=== PATIENT | male | born 1970 | race Caucasian/White ===

== ENCOUNTER 2023-08-23 21:02 | Observation (INO) | payer MEDICARE, SELFPAY ==
[2023-08-23] VITALS (9 sets, daily range): BP systolic 155–176; BP diastolic 88–114; PULSE 98–108; RESP 12–39; TEMP 36.5; O2SAT 93–98; BMI 39.5
--- NOTE | 2023-08-23 21:20 | DI.CT.S_ITS ---
PROCEDURE: CT CHEST ABD PEL W CON INDICATIONS: severe ab pain, distention TECHNIQUE: After the administration of intravenous contrast, 5 mm thick sections acquired from the lung apices to the symphysis. 5 mm coronal and sagittal reformats were performed, with additional 7 mm MIP reformats through the lungs. For radiation dose reduction, the following was used: automated exposure control, adjustment of mA and/or kV according to patient size. COMPARISON: None. FINDINGS: Image quality: Excellent. CHEST: Lungs and pleura: No acute airspace opacities. No pleural effusions or pneumothorax. Central and peripheral airways appear patent and normal in caliber. Mediastinum: Heart size is normal. No pericardial effusion. And inferior right hilar lymph node measures 1 point 5 cm in short axis diameter (146/5). Subcarinal lymph node measures up to 1.2 cm in short axis (132/5). Increased number of normal-sized mediastinal lymph nodes are also noted. Thoracic aorta and central pulmonary arteries are normal in size. Esophagus is normal in caliber. No hiatal hernia. Chest wall: No axillary or supraclavicular adenopathy by size criteria. Thyroid is unremarkable. ABDOMEN: Solid organs: Liver is enlarged and diffusely hypoattenuating, consistent with fatty infiltration. Liver measures 22.7 cm in craniocaudal dimension. There is questionable subtle nodularity of the liver surface, best seen adjacent to the falciform ligament. Gallbladder is normal in appearance without calcified gallstones. Biliary system is non dilated. Pancreas enhances normally. Spleen is normal in size and enhancement. No adrenal nodules. Kidneys demonstrate normal size and enhancement, without hydronephrosis. Peritoneum and bowel: Bowel loops demonstrate normal wall thickness and caliber. Moderate volume of ascites throughout the abdomen and pelvis. No pneumoperitoneum. Nodes and vessels: A 1.2 cm short axis lymph node is seen anterior to the superior vena cava (65/2). There is a 1.3 cm gastric patent ligament left node (60/2). Aorta and inferior vena cava are normal in size. Miscellaneous: No ventral hernias. Mild soft tissue anasarca. PELVIS: Genitourinary: Bladder wall thickness is normal. Miscellaneous: Moderate left and small right fat containing inguinal hernias. Bones: No suspicious bony lesions. No vertebral body compression fractures. IMPRESSION: 1. Moderate volume of ascites throughout the abdomen and pelvis. 2. Hepatomegaly and diffuse hepatic steatosis. Questionable subtle nodularity of the liver surface could indicate mild or developing cirrhosis. 3. Mild soft tissue anasarca. 4. Mildly enlarged upper abdominal, mediastinal, and right hilar lymph nodes are nonspecific, but may be reactive. 5. Bilateral fat containing inguinal hernias. Approved by: Martín Brown M.D. on 08/23/2023 at 21:56
[2023-08-23] MEDS: SODIUM CHLORIDE 0.9% 1,000 ML 1000 ML IV (21:37)
[2023-08-23] MEDS: ONDANSETRON 4 MG/2 ML INJ IV (21:38)
[2023-08-23] MEDS: MORPHINE 2 MG/ML INJ IV (21:38)
[2023-08-23 21:40] LABS: Add Manual Diff / Slide Review NO; Basophils Absolute Auto 100 /uL (0-100); Basophils Percent Auto 1.2 % (0-2); Eosinophils Absolute Auto 100 /uL (0-450); Hematocrit 42.2 % (41-53); Lymphocytes Absolute Auto 1800 /uL (1100-4500); Lymphocytes Percent Auto 18.8 % (25-40); Mean Corpuscular HGB Conc 35.6 % (30-36); Mean Corpuscular Hemoglobin 34.7 PG (26-34); Mean Corpuscular Volume 97.4 fL (80-100); Monocytes Absolute Auto 800 /uL (0-900); Neutrophils Absolute Auto 6800 /uL (1500-7000); Platelet Count 161 X10^3/uL (150-400); Red Blood Cell Count 4.33 X10^6/uL (4.5-5.9); Red Cell Distribution Width 15.7 % (11.6-14.8); White Blood Cell Count 9.6 X10^3/uL (4.5-11.0)
[2023-08-23 21:43] LABS: INR 1.3 (0.9-1.3); Prothrombin Time 15.3 SECONDS (9.4-12.5)
[2023-08-23 21:46] LABS: PTT Partial Thromboplastin Tim 30 SECONDS (25.1-36.5)
[2023-08-23 21:48] LABS: Alanine Aminotransferase 90 IU/L (<50); Albumin 3.1 g/dL (3.5-5.0); Albumin Globulin Ratio 0.8 (1.0-2.8); Alkaline Phosphatase 190 U/L (38-126); Aspartate Aminotransferase 208 IU/L (17-59); BUN Creatinine Ratio 15.6 (6-22); Bilirubin Total 2.3 mg/dL (0.2-1.3); Blood Urea Nitrogen 10 mg/dL (9-20); Calcium 7.9 mg/dL (8.4-10.2); Carbon Dioxide 23 mmol/L (22-32); Chloride 101 mmol/L (98-107); Estimated Glomerular Filt Rate > 60 mL/min (>60); Globulin 4.1 g/dL (1.7-4.1); Glucose 138 mg/dL (70-100); HEMOLYSIS 50 (0-50); Lipase 435 U/L (23-300); Potassium 3.8 mmol/L (3.4-5.1); Sodium 133 mmol/L (137-145); Total Protein 7.2 g/dL (6.3-8.2)
[2023-08-23 21:49] LABS: Lactate (Lactic Acid) 1.7 mmol/L (0.7-2.1)
[2023-08-23 22:05] LABS: Procalcitonin 1.14 ng/mL (<0.5)
[2023-08-23] MEDS: LORazepam 2 MG/ML INJ 1 MG IV (22:09)
[2023-08-23 22:14] LABS: Ethanol (ETOH) 34 mg/dL
--- NOTE | 2023-08-23 22:38 | DI.US.S_ITS ---
PROCEDURE: US ABDOMEN LIMITED INDICATIONS: moses for ascites TECHNIQUE: Real-time focused scanning was performed of the abdomen, with image documentation. COMPARISON: None. FINDINGS: Moderate abdominal ascites is seen with the largest fluid pocket in the right lower quadrant. The skin was marked by the warehouseman for paracentesis. 7 cm seen from the skin surface to the center of the pocket. IMPRESSION: Abdominal ascites. Largest pocket in the right lower quadrant and a site was marked by the warehouseman for paracentesis. Approved by: Martín Brown M.D. on 08/23/2023 at 23:32
--- NOTE | 2023-08-23 23:00 | ED.ABDPAIN ---
HPI - Abdominal Pain General Chief Complaint: Abdominal Pain Stated Complaint: swelling upper abd T-4/ Time Seen by Provider: 08/23/23 21:20 Source: patient Mode of arrival: Ambulatory History of Present Illness HPI narrative: Patient 53-year-old male history of alcohol use presents today with worsening abdominal pain bloating and difficulty breathing. He states that over the last 4 days it is gotten significantly worse. He actually has tried decreasing his alcohol intake because he feels so swollen. He reports that he drinks at least 8 a day but the number has changed with every person he speaks with. He denies fever although on initial presentation he is diaphoretic and appears unwell. He has no nausea or vomiting. He feels a little shortness of breath but thinks that is due to his abdomen no chest pain. He does not really have abdominal pain he just feels really swollen. He reports that he previously was sober for a number of years but started drinking again. Related Data Home Medications Medication Instructions Recorded Confirmed hydroxyzine pamoate 25 mg capsule 25 mg PO BID PRN ##0 05/20/11 (Vistaril) Allergies Allergy/AdvReac Type Severity Reaction Status Date / Time No Known Drug Allergies Allergy Verified 08/23/23 21:06 Patient History Social History Smoking Status: Never smoker Smoking Status: Never smoker alcohol intake frequency: 3 or more drinks per day Alcohol type: beer Substance Use Type: does not use Exam Initial Vital Signs Initial Vital Signs: Vital Signs Temperature 97.7 F 08/23/23 21:06 Pulse Rate 107 H 08/23/23 21:06 Respiratory Rate 26 H 08/23/23 21:06 Blood Pressure 169/101 H 08/23/23 21:06 Pulse Oximetry 95 08/23/23 21:06 Oxygen Delivery Method Room Air 08/23/23 21:06 GENERAL: Alert 53-year-old male appears diaphoretic unwell appears to have [id number] dyspnea. HEENT: Head atraumatic,EOMI, pupils reactive, face symmetric, [moist] mucous membranes CARDIOVASCULAR: Tachycardic but regular RESPIRATORY: Slight tachypnea clear bilaterally no wheezes rales or rhonchi ABDOMEN: Distended hard focally tender decreased bowel sounds EXTREMITIES: Normal range of motion, no clubbing or edema. Neurovascularly intact NEUROLOGICAL: Alert and oriented x4.Normal gait and speech. No cranial nerve deficits SKIN: Warm, dry, no laceration, no petechiae, no rashes or lesions. Procedures Paracentesis Indication: Ascites and possible spontaneous bacterial peritonitis Procedure: therapeutic paracentesis and diagnostic paracentesis Location: RLQ Local Anesthetic: lidocaine 1% Amount of anesthesia used (mL): 3 Bedside Ultrasound Used: yes, Ascites confirmed and location marked Preparation: sterile prep and drape and Blade used to make brendan in skin Amount of fluid obtained (mL): 4,000 Fluid: cloudy and sent to lab for analysis Post Procedure Exam: awake, alert, normal BP, normal HR and normal SpO2 Patient Tolerated Procedure: No complications Complications: none Course Orders Ordered: ED Orders 08/23/23 21:18 XR chest 1V Stat EKG-12 Lead Stat RT Consult Eval and Treat NOW 08/23/23 21:20 CT chest abd pel w con Stat 08/23/23 21:25 Complete Blood Count AUTO DIFF Stat Comprehensive Metabolic Panel Stat Lactate (Lactic Acid) Stat Lipase Stat PTT Partial Thromboplastin Richard Stat Procalcitonin Stat Prothrombin Time INR Stat 08/23/23 21:34 Blood Culture Stat 08/23/23 21:47 Ethanol (ETOH) Stat 08/23/23 22:38 US abdomen limited Stat 08/24/23 00:45 Body Fluid Culture Stat Cell Count w Diff Body Fluid Stat 08/24/23 01:15 LDH [Lactate Dehydrogenase] Stat 08/24/23 02:18 Education, smoking cessation ONGOING 08/24/23 02:30 Complete Blood Count AUTO DIFF DAILY Comprehensive Metabolic Panel DAILY Calcium Carbonate (Calcium Carbonate 500 Mg Tab) 1,000 mg PO Q4HR PRN PRN Reason: Dyspepsia Heparin Sodium (Porcine) (Heparin 5,000 Unit/Ml Vial) 5,000 unit SUBCUT BID REPLACED BY [facility] Ceftriaxone Sodium 2,000 mg/ (Sodium Chloride) 100 mls @ 200 mls/hr IV Q24H REPLACED BY [facility] Ibuprofen (Ibuprofen 400 Mg Tablet) 400 mg PO Q4H [facility] Morphine Sulfate (Morphine 4 Mg/Ml Inj) 3 mg IV Q2HR [facility] Naloxone HCl (Naloxone 0.4 Mg/Ml Vial) 0.2 mg IV Q2MIN PRN PRN Reason: Opiate Reversal Ondansetron HCl (Ondansetron 4 Mg/2 Ml Inj) 4 mg IV NOW PRN PRN Reason: Nausea And Vomiting Ondansetron HCl (Ondansetron 4 Mg Odt) 4 mg SL NOW PRN PRN Reason: Nausea And Vomiting Ondansetron HCl (Ondansetron 4 Mg/2 Ml Inj) 4 mg IV Q8HR PRN PRN Reason: Nausea And Vomiting Oxycodone HCl (Oxycodone Ir 10 Mg Tablet) 5 mg PO Q3H PRN PRN Reason: Pain, Severe (7-10) Pantoprazole Sodium (Pantoprazole Dr 20 Mg Tablet) 20 mg PO 0600 GREGORY Discontinued Medications Sodium Chloride (Normal Saline 0.9%) 1,000 mls @ 1,000 mls/hr IV BOLUS ONE Stop: 08/23/23 22:17 Last Infusion: 08/23/23 22:37 Dose: Infused Documented By: Admin: 08/23/23 21:37 Dose: 1,000 mls/hr Documented By: MIKE Ceftriaxone Sodium 2,000 mg/ (Sodium Chloride) 100 mls @ 200 mls/hr IV NOW ONE Stop: 08/24/23 00:31 Last Infusion: 08/24/23 01:31 Dose: Infused Documented By: Admin: 08/24/23 01:01 Dose: 200 mls/hr Documented By: ASHWIN Lorazepam (Lorazepam 2 Mg/Ml Inj) 1 mg IV NOW ONE Stop: 08/23/23 21:52 Last Admin: 08/23/23 22:09 Dose: 1 mg Documented By: MIKE Morphine Sulfate (Morphine 2 Mg/Ml Inj) 2 mg IV NOW ONE Stop: 08/23/23 21:22 Last Admin: 08/23/23 21:38 Dose: 2 mg Documented By: MIKE Ondansetron HCl (Ondansetron 4 Mg/2 Ml Inj) 4 mg IV NOW ONE Stop: 08/23/23 21:22 Last Admin: 08/23/23 21:38 Dose: 4 mg Documented By: MIKE Vital Signs Vital signs: Vital Signs - 8 hr 08/23/23 21:06 08/23/23 21:18 08/23/23 21:26 Temperature 97.7 F Pulse Rate 107 H 104 H 100 H Respiratory Rate 26 H 28 H 26 H Blood Pressure 169/101 H Pulse Oximetry 95 95 Oxygen Delivery Method Room Air 08/23/23 21:26 08/23/23 21:40 08/23/23 21:41 Temperature Pulse Rate 108 H 103 H Respiratory Rate 13 12 Blood Pressure 166/103 H Pulse Oximetry 98 97 Oxygen Delivery Method 08/23/23 21:41 08/23/23 22:00 08/23/23 22:00 Temperature Pulse Rate 98 H Respiratory Rate 24 Blood Pressure 169/94 H 176/103 H Pulse Oximetry 94 Oxygen Delivery Method 08/23/23 22:30 08/23/23 22:30 08/23/23 23:00 Temperature Pulse Rate 98 H 99 H Respiratory Rate 20 26 H Blood Pressure 155/88 H Pulse Oximetry 93 93 Oxygen Delivery Method 08/23/23 23:00 08/23/23 23:30 08/23/23 23:30 Temperature Pulse Rate 102 H Respiratory Rate 39 H Blood Pressure 159/92 H 159/114 H Pulse Oximetry 96 Oxygen Delivery Method 08/24/23 00:00 08/24/23 00:00 08/24/23 00:30 Temperature Pulse Rate 96 H 99 H Respiratory Rate 21 36 H Blood Pressure 178/104 H Pulse Oximetry 93 95 Oxygen Delivery Method 08/24/23 00:30 08/24/23 01:00 08/24/23 01:00 Temperature 98.8 F Pulse Rate 99 H Respiratory Rate 36 H Blood Pressure 196/97 H 198/100 H Pulse Oximetry 96 Oxygen Delivery Method 08/24/23 01:30 08/24/23 01:30 Temperature Pulse Rate 99 H Respiratory Rate 36 H Blood Pressure 190/93 H Pulse Oximetry 96 Oxygen Delivery Method MDM - Abdominal Pain Lab Data 08/23/23 21:25 08/23/23 21:25 Labs: Lab Results 08/23/23 08/23/23 08/24/23 Range/Units 21:25 21:47 00:45 WBC 9.6 (4.5-11.0) X10^3/uL RBC 4.33 L (4.5-5.9) X10^6/uL Hgb 15.0 (13.5-17.5) g/dL Hct 42.2 (41-53) % MCV 97.4 (80-100) fL MCH 34.7 H (26-34) PG MCHC 35.6 (30-36) % RDW 15.7 H (11.6-14.8) % Plt Count 161 (150-400) X10^3/uL Neut % (Auto) 71.0 (50-75) % Lymph % (Auto) 18.8 L (25-40) % [place] % (Auto) 8.0 (3-14) % Eos % (Auto) 1.0 L (2-4) % Baso % (Auto) 1.2 (0-2) % Neut # (Auto) 6800 (3829-1350) /uL Lymph # (Auto) 1800 (6106-6247) /uL [place] # (Auto) 800 (0-900) /uL Eos # (Auto) 100 (0-450) /uL Baso # (Auto) 100 (0-100) /uL PT 15.3 H (9.4-12.5) SECONDS INR 1.3 (0.9-1.3) APTT 30 (25.1-36.5) SECONDS Sodium 133 L (137-145) mmol/L Potassium 3.8 (3.4-5.1) mmol/L Chloride 101 (98-107) mmol/L Carbon Dioxide 23 (22-32) mmol/L BUN 10 (9-20) mg/dL Creatinine 0.64 L (0.66-1.25) mg/dL Estimated GFR > 60 (>60) mL/min BUN/Creatinine Ratio 15.6 (6-22) Glucose 138 H (70-100) mg/dL Lactate 1.7 (0.7-2.1) mmol/L Calcium 7.9 L (8.4-10.2) mg/dL Total Bilirubin 2.3 H (0.2-1.3) mg/dL AST 208 H (17-59) IU/L ALT 90 H (<50) IU/L Alkaline Phosphatase 190 H (38-126) U/L Lactate Dehydrogenase 387 H (120-246) U/L Total Protein 7.2 (6.3-8.2) g/dL Albumin 3.1 L (3.5-5.0) g/dL Globulin 4.1 (1.7-4.1) g/dL Albumin/Globulin Ratio 0.8 L (1.0-2.8) Lipase 435 H (23-300) U/L Procalcitonin 1.14 H (<0.5) ng/mL Fluid Color Yellow Fluid Appearance Hazy Fluid RBC 101 /uL Fld Tot Nucleated Cell 139 /uL Fluid Polynuclear WBCs 16 % Fluid Mononuclear WBCs 84 % Fluid Eosinophils 0 % Fluid Other Cells 0 % Body Fluid Clot No clots present Ethyl Alcohol 34 H ( - 10) mg/dL [facility] Narrative Medical decision making narrative: Patient 53-year-old male history of alcohol use presenting today worsening abdominal pain and shortness of breath. He initially appeared very unwell diaphoretic tachypneic with a very distended abdomen. Concern for perforation or other etiology. He was taken to CT very quickly. CT confirms moderate amount of ascites but no perforation. He is diffuse anasarca as well. Given morphine and Ativan which helped breathing in pain. Appeared much more comfortable afterwards. Blood work has been reviewed he has no leukocytosis no significant left shift INR 1.3, sodium 133 creatinine 0.64, lactate 1.7, total bilirubin 2.3, AST 208, ALT 90, alk-phos 190, albumin 3.1, lipase 435, procalcitonin 1.1 Patient has new onset ascites likely secondary to alcohol use. Symptoms and clinical presentation improved after Ativan and morphine. Paracentesis done with diagnostic fluid sent. It is very cloudy concern for SBP. He is given 2 g of Rocephin. No evidence of sepsis Likely also having alcohol withdrawal as well requiring a little Ativan Dr. Webster updated patient's symptoms test results and accepts patient Discharge Plan Departure Patient Disposition: Admitted As Inpatient Clinical Impression: Spontaneous bacterial peritonitis, Alcohol abuse with withdrawal, Abdominal ascites Admit Date/Time: 08/24/23 02:18 Admit Provider: Florian Love
[2023-08-24] VITALS (10 sets, daily range): BP systolic 140–198; BP diastolic 75–119; PULSE 95–99; RESP 21–55; TEMP 36.7–37.1; O2SAT 93–99; BMI 39.5
[2023-08-24] MEDS: cefTRIAXone 2,000 MG in SODIUM CHLORIDE 0.9% 100 ML 200 MG IV (01:01)
--- NOTE | 2023-08-24 01:05 | PC.NURSE ---
Patient tolerated paracentesis well. Able to get the full 4L out per Dr Moreno order. Applied allevyn dressing to site and applied gentle pressure. Patient reports decrease in abdominal discomfort. Vital signs stable.
[2023-08-24 01:08] LABS: Body Fluid Tot Nucleated Cells 139 /uL
[2023-08-24 01:26] LABS: Body Fluid Red Blood Cells 101 /uL
[2023-08-24 01:28] LABS: Lactate Dehydrogenase 387 U/L (120-246)
[2023-08-24 01:58] LABS: Body Fluid Appearance HAZY; Body Fluid Clotted? NO CLOTS PRESENT; Body Fluid Color YELLOW
[2023-08-24 02:23] LABS: Eosinophils Body Fluid 0 %; Mononuclear WBC Body Fluid 84 %; Polynuclear WBC Body Fluid 16 %
[2023-08-24 02:24] LABS: Other Cells Body Fluid 0 %
--- NOTE | 2023-08-24 02:40 | PC.NURSE ---
Pt arrived to 225 via wheelchair. AOx4, independent in room. 98% on room air, lungs clear. Pt states he lives at home alone, but has his parents for support and a son who lives with them. States he started drinking heavily in 2009 after his and then stopped for about 6 years. 2 months ago he started drinking 6 strong beers, vodka in the evenings. Stated his last drink was 12/3 at 1800. Pt has never had the swelling or discomfort in abd before and it kept getting worse over the past 3 days. Paracentesis done in ER with 4L off. Pt in bed very cooperative. CIWA is 1. Will continue to monitor, bed alarm on.
--- NOTE | 2023-08-24 03:31 | PM.HP.1 ---
History of Present Illness History of Present Illness Date Patient Seen: 08/24/23 Time Patient Seen: 03:31 Chief complaint: swelling upper abd T-4/ Narrative: The pt presents to the ER tonight due to a 3 day history of worsening abdominal distention and abdominal pressure that is dull achy constant and progressive. He reports that he has a long hx of heavy alcohol use and previously was drinking 1/5 of vodka per day but quit about 6 years ago only to resume heavy comsuption about 2 months ago drinking more than ever. He states that he has had loose stools over the past 3 days, but no fevers, chills, SOB, CP, melana, or hematemesis. His last drink was just prior to presenting to the ER. In the er, CT scan was done showing moderate amount of ascities and 4 liter were drawn off with paracentesis, reportedly was cloudy. [facility] Social History household members: none Smoking Status: Never smoker Meds Home Medications and Allergies Home Medications Medication Instructions Recorded Confirmed Type bupropion HCl 150 mg 24 hr tablet, 150 mg PO DAILY 08/24/23 08/24/23 History extended release Allergies Allergy/AdvReac Type Severity Reaction Status Date / Time No Known Drug Allergies Allergy Verified 08/23/23 21:06 Exam Vital Signs (past 8 hours): - 08/23/23 21:06 08/23/23 21:18 08/23/23 21:26 Temperature 97.7 F Pulse Rate 107 H 104 H 100 H Respiratory Rate 26 H 28 H 26 H Blood Pressure 169/101 H Pulse Oximetry 95 95 Oxygen Delivery Method Room Air 08/23/23 21:26 08/23/23 21:40 08/23/23 21:41 Temperature Pulse Rate 108 H 103 H Respiratory Rate 13 12 Blood Pressure 166/103 H Pulse Oximetry 98 97 Oxygen Delivery Method 08/23/23 21:41 08/23/23 22:00 08/23/23 22:00 Temperature Pulse Rate 98 H Respiratory Rate 24 Blood Pressure 169/94 H 176/103 H Pulse Oximetry 94 Oxygen Delivery Method 08/23/23 22:30 08/23/23 22:30 08/23/23 23:00 Temperature Pulse Rate 98 H 99 H Respiratory Rate 20 26 H Blood Pressure 155/88 H Pulse Oximetry 93 93 Oxygen Delivery Method 08/23/23 23:00 08/23/23 23:30 12/03/23 23:30 Temperature Pulse Rate 102 H Respiratory Rate 39 H Blood Pressure 159/92 H 159/114 H Pulse Oximetry 96 Oxygen Delivery Method 08/24/23 00:00 08/24/23 00:00 08/24/23 00:30 Temperature Pulse Rate 96 H 99 H Respiratory Rate 21 36 H Blood Pressure 178/104 H Pulse Oximetry 93 95 Oxygen Delivery Method 08/24/23 00:30 08/24/23 01:00 08/24/23 01:00 Temperature 98.8 F Pulse Rate 99 H Respiratory Rate 36 H Blood Pressure 196/97 H 198/100 H Pulse Oximetry 96 Oxygen Delivery Method 08/24/23 01:30 08/24/23 01:30 08/24/23 01:33 Temperature Pulse Rate 99 H 95 H Respiratory Rate 36 H 25 H Blood Pressure 190/93 H Pulse Oximetry 96 96 Oxygen Delivery Method 08/24/23 01:33 08/24/23 02:00 08/24/23 02:00 Temperature Pulse Rate 99 H Respiratory Rate 55 H Blood Pressure 178/93 H 180/119 H Pulse Oximetry 95 Oxygen Delivery Method 08/24/23 02:23 08/24/23 02:40 08/24/23 02:40 Temperature 98.0 F Pulse Rate 95 H Respiratory Rate 22 Blood Pressure 168/84 H Pulse Oximetry 97 98 Oxygen Delivery Method Room Air Room Air Oxygen Delivery Method Room Air Const General: cooperative and healthy appearing Eyes General: appearance normal, both eyes and all related structures Resp Auscultation: clear to auscultation bilaterally Cardio Rate: regular rate Rhythm: regular rhythm GI Inspection: edema and obesity Auscultation: normal bowel sounds Extrem General: normal to inspection and no clubbing, cyanosis or edema Objective Labs 08/23/23 21:25 08/23/23 21:25 Labs: Laboratory Results - last 24 hr 08/23/23 08/23/23 08/24/23 21:25 21:47 00:45 WBC 9.6 RBC 4.33 L Hgb 15.0 Hct 42.2 MCV 97.4 MCH 34.7 H MCHC 35.6 RDW 15.7 H Plt Count 161 Neut % (Auto) 71.0 Lymph % (Auto) 18.8 L [place] % (Auto) 8.0 Eos % (Auto) 1.0 L Baso % (Auto) 1.2 Neut # (Auto) 6800 Lymph # (Auto) 1800 [place] # (Auto) 800 Eos # (Auto) 100 Baso # (Auto) 100 PT 15.3 H INR 1.3 APTT 30 Sodium 133 L Potassium 3.8 Chloride 101 Carbon Dioxide 23 BUN 10 Creatinine 0.64 L Estimated GFR > 60 BUN/Creatinine Ratio 15.6 Glucose 138 H Lactate 1.7 Calcium 7.9 L Total Bilirubin 2.3 H AST 208 H ALT 90 H Alkaline Phosphatase 190 H Lactate Dehydrogenase 387 H Total Protein 7.2 Albumin 3.1 L Globulin 4.1 Albumin/Globulin Ratio 0.8 L Lipase 435 H Procalcitonin 1.14 H Fluid Color Yellow Fluid Appearance Hazy Fluid RBC 101 Fld Tot Nucleated Cell 139 Fluid Polynuclear WBCs 16 Fluid Mononuclear WBCs 84 Fluid Eosinophils 0 Fluid Other Cells 0 Body Fluid Clot No clots present Ethyl Alcohol 34 H Assessment & Plan Assessment and plan (1) Spontaneous bacterial peritonitis: Status: Acute (2) Alcohol dependence: Status: Acute (3) Acute alcoholic pancreatitis: Status: Acute Plan The pt does not appear to be in acute withdrawls at this time but will place him on CWIA protocols with IV ativan and close monitoring. I spoke with the ER provider and agree with the decision for admission. Since the fluid was cloudy we cannot definitively rule out SBP, and cultures pending from the fluid, will start empiric rocephin 2 gm daily, currently on a clear diet, repeating the lipase since it is >400, CT scan reviewed by myself,
[2023-08-24 05:34] LABS: Add Manual Diff / Slide Review NO; Basophils Absolute Auto 100 /uL (0-100); Basophils Percent Auto 0.7 % (0-2); Eosinophils Absolute Auto 100 /uL (0-450); Eosinophils Percent Auto 1.9 % (2-4); Hematocrit 38.6 % (41-53); Hemoglobin 13.7 g/dL (13.5-17.5); Lymphocytes Absolute Auto 1500 /uL (1100-4500); Lymphocytes Percent Auto 20.1 % (25-40); Mean Corpuscular HGB Conc 35.4 % (30-36); Mean Corpuscular Hemoglobin 34.6 PG (26-34); Mean Corpuscular Volume 97.6 fL (80-100); Monocytes Absolute Auto 700 /uL (0-900); Neutrophils Absolute Auto 5200 /uL (1500-7000); Neutrophils Percent Auto 68.3 % (50-75); Platelet Count 129 X10^3/uL (150-400); Red Blood Cell Count 3.95 X10^6/uL (4.5-5.9); Red Cell Distribution Width 16.1 % (11.6-14.8); White Blood Cell Count 7.6 X10^3/uL (4.5-11.0)
[2023-08-24] MEDS: PANTOPRAZOLE DR 20 MG TABLET PO (05:37)
[2023-08-24 05:39] LABS: Alanine Aminotransferase 67 IU/L (<50); Albumin 2.5 g/dL (3.5-5.0); Albumin Globulin Ratio 0.7 (1.0-2.8); Alkaline Phosphatase 169 U/L (38-126); Aspartate Aminotransferase 175 IU/L (17-59); Bilirubin Total 2.2 mg/dL (0.2-1.3); Blood Urea Nitrogen 9 mg/dL (9-20); Calcium 7.4 mg/dL (8.4-10.2); Carbon Dioxide 24 mmol/L (22-32); Chloride 103 mmol/L (98-107); Estimated Glomerular Filt Rate > 60 mL/min (>60); Globulin 3.7 g/dL (1.7-4.1); Glucose 125 mg/dL (70-100); HEMOLYSIS < 15 (0-50); Potassium 3.6 mmol/L (3.4-5.1); Sodium 131 mmol/L (137-145); Total Protein 6.2 g/dL (6.3-8.2)
[2023-08-24] MEDS: HEPARIN 5,000 UNIT/ML VIAL 5000 UNIT SUBCUT (08:20)
[2023-08-24] MEDS: MULTIVITAMIN 1 TABLET 1 TAB PO (08:20)
[2023-08-24] MEDS: FOLIC ACID 1 MG TABLET PO (08:21)
[2023-08-24] MEDS: SPIRONOLACTONE 25 MG TABLET PO (08:21)
[2023-08-24] MEDS: FUROSEMIDE 40 MG TABLET PO (08:21)
[2023-08-24] MEDS: buPROPion XL 150 MG TAB PO (08:21)
[2023-08-24] MEDS: THIAMINE 100 MG TABLET PO (08:21)
[2023-08-24 10:54] LABS: Appearance Urine UA CLEAR; Bilirubin Urine UA NEGATIVE (NEGATIVE); Color Urine UA YELLOW; Glucose Urine UA NEGATIVE (Negative); Ketones Urine UA NEGATIVE (NEGATIVE); Leukocyte Esterase Urine UA NEGATIVE (NEGATIVE); Nitrite Urine UA NEGATIVE (Negative); Occult Blood Urine UA NEGATIVE (Negative); Protein Urine UA NEGATIVE (Negative); Urobilinogen Urine UA 0.2 E.U./dL (0.2)
[2023-08-24 11:01] LABS: Bacteria Urine None Seen; Culture Indicated Urine Cult Not Indicated; RBC Urine None Seen (0-5/HPF); Squamous Epithelial Cell Urine None Seen (0-5/HPF); WBC Urine None Seen (0-5/HPF)
--- NOTE | 2023-08-24 15:05 | CM.DANOTE ---
Patient is a 53 yo male who was admitted on 08/24/23 for Swelling Abd. Pt has [facility] and [facility] for insurance and his PCP is Layne Bustamante. EMR was reviewed. Per MD, pt has a long hx of ETOH abuse but lengthy sobriety with recent relapse and admitted for ascities with paracentesis and cultures returned negative. On [facility] protocol. Per MD, pt medically stable to d/c home today and before high risk of ETOH withdrawal begins as pt's last drink was right at admission to ED. SW met bedside with pt and explained role and pt confirms he lives in [place] in a supportive [place] housing complex where he has lived for 2 years. Pt is independent at baseline and drives and denies hx of HH or SNF. Pt states he was in [place] visiting his parents and his son lives with those grandparents. Pt is agreeable with d/c home today and states his truck is at his local parent's house but he will likely stay the night with them tonight and go back to [place] tomorrow. Pt confirms that he has a long ETOH abuse hx with multiple [facility] treatment attempts and pt was sober for the past 6 years with relapse about 2 months ago with increased alcohol intake. Pt states his plan is to reach out to his newly assigned [facility] nav[facility] for assist with ETOH support groups and AA meetings and pt denies Inpt LYNDSEY at this time. 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 Pt has insight and now states more motivation to remain sober. Pt denies additional LYNDSEY resources or needs at this time. Plan: Patient to d/c home to parent's house in [place] and then return home to [place] with outpt f/u. No further SW needs at this time. MYESHA Bran Discharge Planning/Care Management CM Discharge Assessment Start: 08/24/23 15:01 Freq: Status: Discharge Protocol: Document 08/24/23 15:02 BF (Rec: 08/24/23 15:03 BF [id number]) Discharge Planning Assessment Assigned [employer] MYESHA Medeiros DPOA/Assigned Designee Name none Advance Directives? No Advance Directives on File No History Provided By Patient,Medical Record Has Patient been admitted in last 30 No days? Prior Living Arrangements Other Comment support group by the [facility] Household Members none Type of transporation used prior to Drives own vehicle admit Independent with ADL's Yes Is patient alert and oriented? Yes Caregiver for Another No: son lives with pt's parents in [place] Barriers to Discharge No Discharge Plan Drug Rehabilitation Transportation Arrangement Has own vehicle in [place] at his parent's house Referrals Initiated None needed Whiteboard Updated in Patient Room with Yes name and ext. # of [employer] Review Status In Process Please Provide Date Initial DC 08/24/23 Assessment Was Performed Next Review Type Continued Stay Review
--- NOTE | 2023-08-24 16:24 | P.DS_ITS ---
History of Present Illness History of Present Illness Date Patient Seen: 08/24/23 Time Patient Seen: 08:30 Chief complaint: swelling upper abd T-4/ Narrative: The pt presents to the ER tonight due to a 3 day history of worsening abdominal distention and abdominal pressure that is dull achy constant and progressive. He reports that he has a long hx of heavy alcohol use and previously was drinking 1/5 of vodka per day but quit about 6 years ago only to resume heavy comsuption about 2 months ago drinking more than ever. He states that he has had loose stools over the past 3 days, but no fevers, chills, SOB, CP, melana, or hematemesis. His last drink was just prior to presenting to the ER. In the er, CT scan was done showing moderate amount of ascities and 4 liter were drawn off with paracentesis, reportedly was cloudy. Discharge Providers Provider Date of admission: 08/24/23 02:18 Discharge Date: 08/24/23 Primary care physician: Layne Bustamante MD Consults: 08/24/23 03:00 Consult to Chair Finisher Routine Comment: 08/24/23 03:27 Consult to Dietitian, Adult Routine Comment: Reason For Exam: nutrition Discharge provider: Gage Ellis DO Summary Hospital Course Discharge Diagnosis: #Alcohol dependence: #Acute alcoholic hepatitis with asictes Hospital Course: This is a 53 year old male with PMH of depression and alcohol use admitted with abdominal pain and concern for pancreatitis. Lipase was not 3x the upper limit of normal and the following morning he was tolerating a diet without issue. There was thought he may have SBP with cloudy fluid, but this was also negative by cell count. He has never had ascites before. He was started on oral diuretics and outpatient follow up is recommended for further liver evaluation. He was advised to stop drinking. He had no severe features of alcohol withdrawal in the past, but was agreeable to discharge with gabapentin taper. Time Spent with Patient Time spent: Greater than 30 minutes Exam Vital Signs (past 8 hours): - 08/24/23 10:00 Pulse Oximetry 97 Oxygen Delivery Method Room Air Oxygen Flow Rate 0 Oxygen Delivery Method Room Air Oxygen Flow Rate 0 Const General: cooperative and healthy appearing Eyes General: appearance normal, both eyes and all related structures Resp Auscultation: clear to auscultation bilaterally Cardio Rate: regular rate Rhythm: regular rhythm GI Inspection: edema and obesity Auscultation: normal bowel sounds Extrem General: normal to inspection and no clubbing, cyanosis or edema Objective Labs 08/24/23 04:52 08/24/23 04:52 Labs: Laboratory Results - last 24 hr 08/23/23 08/23/23 08/24/23 21:25 21:47 00:45 WBC 9.6 RBC 4.33 L Hgb 15.0 Hct 42.2 MCV 97.4 MCH 34.7 H MCHC 35.6 RDW 15.7 H Plt Count 161 Neut % (Auto) 71.0 Lymph % (Auto) 18.8 L [place] % (Auto) 8.0 Eos % (Auto) 1.0 L Baso % (Auto) 1.2 Neut # (Auto) 6800 Lymph # (Auto) 1800 [place] # (Auto) 800 Eos # (Auto) 100 Baso # (Auto) 100 PT 15.3 H INR 1.3 APTT 30 Sodium 133 L Potassium 3.8 Chloride 101 Carbon Dioxide 23 BUN 10 Creatinine 0.64 L Estimated GFR > 60 BUN/Creatinine Ratio 15.6 Glucose 138 H Lactate 1.7 Calcium 7.9 L Total Bilirubin 2.3 H AST 208 H ALT 90 H Alkaline Phosphatase 190 H Lactate Dehydrogenase 387 H Total Protein 7.2 Albumin 3.1 L Globulin 4.1 Albumin/Globulin Ratio 0.8 L Lipase 435 H Procalcitonin 1.14 H Urine Color Urine Appearance Urine pH Ur Specific [place] Urine Protein Urine Glucose (UA) Urine Ketones Urine Occult Blood Urine Nitrate Urine Bilirubin Urine Urobilinogen Ur Leukocyte Esterase Urine RBC Urine WBC Ur Squamous Epith Cells Urine Bacteria Ur Culture Indicated? Fluid Color Yellow Fluid Appearance Hazy Fluid RBC 101 Fld Tot Nucleated Cell 139 Fluid Polynuclear WBCs 16 Fluid Mononuclear WBCs 84 Fluid Eosinophils 0 Fluid Other Cells 0 Body Fluid Clot No clots present Ethyl Alcohol 34 H 08/24/23 08/24/23 04:52 10:40 WBC 7.6 RBC 3.95 L Hgb 13.7 Hct 38.6 L MCV 97.6 MCH 34.6 H MCHC 35.4 RDW 16.1 H Plt Count 129 L Neut % (Auto) 68.3 Lymph % (Auto) 20.1 L [place] % (Auto) 9.0 Eos % (Auto) 1.9 L Baso % (Auto) 0.7 Neut # (Auto) 5200 Lymph # (Auto) 1500 [place] # (Auto) 700 Eos # (Auto) 100 Baso # (Auto) 100 PT INR APTT Sodium 131 L Potassium 3.6 Chloride 103 Carbon Dioxide 24 BUN 9 Creatinine 0.60 L Estimated GFR > 60 BUN/Creatinine Ratio 15.0 Glucose 125 H Lactate Calcium 7.4 L Total Bilirubin 2.2 H AST 175 H ALT 67 H Alkaline Phosphatase 169 H Lactate Dehydrogenase Total Protein 6.2 L Albumin 2.5 L Globulin 3.7 Albumin/Globulin Ratio 0.7 L Lipase Procalcitonin Urine Color Yellow Urine Appearance Clear Urine pH 5.0 Ur Specific [place] 1.010 Urine Protein Negative Urine Glucose (UA) Negative Urine Ketones Negative Urine Occult Blood Negative Urine Nitrate Negative Urine Bilirubin Negative Urine Urobilinogen 0.2 Ur Leukocyte Esterase Negative Urine RBC None seen Urine WBC None seen Ur Squamous Epith Cells None seen Urine Bacteria None seen Ur Culture Indicated? Cult not indicated Fluid Color Fluid Appearance Fluid RBC Fld Tot Nucleated Cell Fluid Polynuclear WBCs Fluid Mononuclear WBCs Fluid Eosinophils Fluid Other Cells Body Fluid Clot Ethyl Alcohol PFSH Social History household members: none Smoking Status: Never smoker Discharge Plan Discharge Plan Patient Disposition: Home Provider Discharge Comment: You were admitted to the hospital with abdominal swelling, fluid was removed in the emergency room. It was negative for infection. This fluid is a result of your drinking alcohol. It is vital to avoid alcohol in the future for protection of your liver. Please continue diuretic medication for now to prevent fluid reaccumulation. Follow up with your PCP as soon as possible after discharge to review new medications. Discharge orders & Medications Prescriptions: New furosemide 20 mg tablet 20 mg PO DAILY 90 Days Qty: 90 0RF spironolactone 25 mg tablet 25 mg PO BID 90 Days Qty: 180 0RF gabapentin 300 mg capsule See Rx Instructions .ROUTE .COMPLEX Qty: 10 0RF Rx Instructions: 300 mg q6H day 1, 300 mg q8 hr day 2, 300 mg BID day 3, 300 mg bedtime day 4, then stop. Continued bupropion HCl 150 mg tablet extended release 24 hr 150 mg PO DAILY Follow up/Referrals: Layne Bustamante MD [Primary Care Provider] - Diet/Activity/Treatments Diet: Diet as Tolerated and Regular Activity: As tolerated, Visit Report/Discharge Packet Instructions: Alcohol and Stress: There are Safer Ways to [place], DI for Alcohol Use Disorder, Spironolactone, Furosemide, Gabapentin Stand Alone Forms: Patient Portal/API, Stroke Signs & Symptoms Discharge Data Primary Care Provider: Layne Bustamante
--- NOTE | 2023-08-26 13:16 | P.HP_ITS ---
History of Present Illness History of Present Illness Date Patient Seen: 08/24/23 Time Patient Seen: 07:30 Chief complaint: swelling upper abd T-4/ Narrative: Per overnight provider, The pt presents to the ER tonight due to a 3 day history of worsening abdominal distention and abdominal pressure that is dull achy constant and progressive. He reports that he has a long hx of heavy alcohol use and previously was drinking 1/5 of vodka per day but quit about 6 years ago only to resume heavy comsuption about 2 months ago drinking more than ever. He states that he has had loose stools over the past 3 days, but no fevers, chills, SOB, CP, melana, or hematemesis. His last drink was just prior to presenting to the ER. In the er, CT scan was done showing moderate amount of ascities and 4 liter were drawn off with paracentesis, reportedly was cloudy. [facility] Social History household members: none Smoking Status: Never smoker Meds Home Medications and Allergies Home Medications Medication Instructions Recorded Confirmed Type bupropion HCl 150 mg 24 hr tablet, 150 mg PO DAILY 08/24/23 08/24/23 History extended release furosemide 20 mg tablet 20 mg PO DAILY 90 days #90 tabs 08/24/23 Rx gabapentin 300 mg capsule See Rx Instructions .Route 08/24/23 Rx .COMPLEX #10 caps spironolactone 25 mg tablet 25 mg PO BID 90 days #180 tabs 08/24/23 Rx Allergies Allergy/AdvReac Type Severity Reaction Status Date / Time No Known Drug Allergies Allergy Verified 08/23/23 21:06 Review of Systems Review of Systems Narrative: All other systems reviewed with the patient and are negative unless otherwise stated. Exam Vital Signs (past 8 hours): Oxygen Delivery Method Room Air Oxygen Flow Rate 0 Const General: cooperative and healthy appearing Eyes General: appearance normal, both eyes and all related structures Resp Auscultation: clear to auscultation bilaterally Cardio Rate: regular rate Rhythm: regular rhythm GI Inspection: edema and obesity Auscultation: normal bowel sounds Extrem General: normal to inspection and no clubbing, cyanosis or edema Objective Labs 08/24/23 04:52 08/24/23 04:52 Assessment & Plan Assessment and plan (1) Spontaneous bacterial peritonitis: Status: Acute (2) Alcohol dependence: Status: Acute (3) Acute alcoholic pancreatitis: Status: Acute Plan The pt does not appear to be in acute withdrawls at this time but will place him on CWIA protocols with IV ativan and close monitoring. I spoke with the ER provider and agree with the decision for admission. Since the fluid was cloudy we cannot definitively rule out SBP, and cultures pending from the fluid, will start empiric rocephin 2 gm daily, currently on a clear diet, repeating the lipase since it is >400, CT scan reviewed by myself, Assessment & Plan narrative: 1. Acute alcoholic hepatitis - low DF, negative for SBP by cell count, follow up cultures - Advance diet as tolerated - does not have pancreatitis 2. Alcohol dependence - no prior severe withdrawal symptoms, continue CIWA protocol and prn ativan Code: Full Dispo: Admit observation, probable discharge home if tolerating diet. Discussed with overnight provider to formuate the above assessment and plan. I have utilized all available immediate resources to obtain, update, or review the patient's current medications.
== END 2023-08-24 13:15 | disposition home or self-care (01) | DRG 371 ==
LOC: ED 08-24 02:16 → AC 08-24 02:22
PROVIDERS: Internal Medicine; Admitting Provider Internal Medicine; Emergency Provider Emergency Medicine; PCP Family Medicine; Referring Provider Emergency Medicine; Visit Provider Internal Medicine
DX: K65.2 Spontaneous bacterial peritonitis (principal); K85.20 Alcohol induced acute pancreatitis without necrosis or infection; F10.20 Alcohol dependence, uncomplicated; K70.11 Alcoholic hepatitis with ascites; Y90.1 Blood alcohol level of 20-39 mg/100 ml
CPT/HCPCS: 36415; 49083; 71260; 74177; 76705; 80053; 80320; 81001; 83605; 83615; 83690; 84145; 85025; 85610; 85730; 87040; 87070; 87075; 87205; 89051; 93005; 96365; 96375; 99284; G0378; J0696; J1644; J2060; J2270; J2405; Q9967

== ENCOUNTER 2023-09-25 17:24 | Emergency (ER) | payer MEDICARE, SELFPAY ==
[2023-08-24 02:23] VITALS: BMI 39.5
[2023-09-25] VITALS (15 sets, daily range): BP systolic 120–143; BP diastolic 57–76; PULSE 97–115; RESP 16–18; TEMP 36.3; O2SAT 92–97; BMI 34.4
--- NOTE | 2023-09-25 18:10 | DI.CT.S_ITS ---
PROCEDURE: CT ABDOMEN PELVIS W CON INDICATIONS: Abdominal distention TECHNIQUE: After the administration of intravenous contrast, axial sections acquired from the lung bases to the pubic symphysis. Coronal and sagittal reformats were performed. For radiation dose reduction, the following was used: automated exposure control, adjustment of mA and/or kV according to patient size. COMPARISON: [facility], CT, CT CHEST ABD PEL W CON, 08/23/2023, 21:33. FINDINGS: Image quality: Diagnostic. Lower Chest: No significant findings. ABDOMEN: Liver: Nodular appearance of the liver. Liver measures approximately 22 cm. Gallbladder: No radiopaque gallstones or wall thickening. Biliary ducts: No biliary dilation. Pancreas: No ductal dilation. Spleen: Size is within normal limits. Adrenal Glands: No adrenal nodules. Kidneys and Ureters: No hydronephrosis. No solid mass. No complex renal cystic lesion which requires follow up. Stomach and Bowel: Normal colonic caliber, without significant wall thickening. Mild thickening of the distal esophagus with hiatal hernia. Peritoneum: Abdominal pelvic ascites [id number], unchanged. Ventral Wall: No hernia. Abdominal Nodes: Scattered areas of borderline enlarged periportal and peripancreatic lymph nodes, unchanged. Vessels: Aorta and inferior vena cava are normal in size. PELVIS: Pelvic Organs: Unremarkable. Bladder: Unremarkable. Pelvic Nodes: No enlarged lymph nodes. Miscellaneous: Bilateral fat containing inguinal hernias are seen. Bones: No aggressive osseous abnormality. IMPRESSION: Nodular appearance of the liver with ascites suggestive of cirrhosis. Appearance is unchanged. Mild distal esophageal thickening with hiatal hernia. The former could be related to esophagitis as it is slightly more prominent when compared to prior exam. However, recommend follow-up with upper GI/endoscopies as indicated. Unchanged appearance of borderline enlarged mesenteric lymph nodes. Dictated by: Brittany Ortez M.D. on 09/25/2023 at 19:23 Approved by: Brittany Ortez M.D. on 09/25/2023 at 19:28
[2023-09-25 18:17] LABS: Hemoglobin 15.1 g/dL (13.5-17.5)
[2023-09-25 18:20] LABS: Hematocrit 42.4 % (41-53); Mean Corpuscular HGB Conc 35.6 % (30-36); Mean Corpuscular Hemoglobin 34.7 PG (26-34); Mean Corpuscular Volume 97.5 fL (80-100); Platelet Count 76 X10^3/uL (150-400); Red Blood Cell Count 4.35 X10^6/uL (4.5-5.9); Red Cell Distribution Width 14.6 % (11.6-14.8); White Blood Cell Count 9.8 X10^3/uL (4.5-11.0)
[2023-09-25 18:22] LABS: Add Manual Diff / Slide Review YES
[2023-09-25 18:24] LABS: INR 1.5 (0.9-1.3); Prothrombin Time 17.2 SECONDS (9.4-12.5)
[2023-09-25 18:27] LABS: PTT Partial Thromboplastin Tim 33 SECONDS (25.1-36.5)
[2023-09-25 18:37] LABS: BUN Creatinine Ratio 17.8 (6-22); Blood Urea Nitrogen 16 mg/dL (9-20); Calcium 8.7 mg/dL (8.4-10.2); Carbon Dioxide 36 mmol/L (22-32); Chloride 78 mmol/L (98-107); Estimated Glomerular Filt Rate > 60 mL/min (>60); Glucose 216 mg/dL (70-100); HEMOLYSIS < 15 (0-50); Sodium 123 mmol/L (137-145)
[2023-09-25 19:02] LABS: Neutrophils Absolute Manual 8036 /uL (3000-5900); Total Cells Counted 100
[2023-09-25 19:03] LABS: RBC Morphology Norm
--- NOTE | 2023-09-25 19:11 | ED_ITS ---
HPI - Abdominal Pain General Chief Complaint: Abdominal Pain Stated Complaint: post fluid drained from abd wall/needs more drain Time Seen by Provider: 09/25/23 17:53 History of Present Illness HPI narrative: 53-year-old male presents with progressively worsening abdominal distention for 1 week. Patient denies abdominal pain and shortness of breath. Patient reports paracentesis done earlier in August. Patient was seen in this emergency department on 08/23/2023 with abdominal pain and dyspnea. Chart review reports that patient was in need of emergent paracentesis with 3 L drained improvement in symptoms. Patient's ascites is associated with chronic alcohol abuse. Patient does report having a primary care provider but has not had a paracentesis performed as an outpatient in the past. No other complaints or associated symptoms noted. Patient arrives via private vehicle. Patient is ambulatory awake, alert, in no apparent distress and maintaining his own airway. Related Data Home Medications Medication Instructions Recorded Confirmed bupropion HCl 150 mg 24 hr tablet, 150 mg PO DAILY 08/24/23 08/24/23 extended release Previous Rx's Medication Instructions Recorded furosemide 20 mg tablet 20 mg PO DAILY 90 days #90 tabs 08/24/23 gabapentin 300 mg capsule See Rx Instructions .Route 08/24/23 .COMPLEX #10 caps spironolactone 25 mg tablet 25 mg PO BID 90 days #180 tabs 08/24/23 Allergies Allergy/AdvReac Type Severity Reaction Status Date / Time No Known Drug Allergies Allergy Verified 08/23/23 21:06 Review of Systems Review of Systems Narrative: See HPI for pertinent positives, otherwise review of systems negative Patient History Social History household members: none Smoking Status: Never smoker Smoking Status: Never smoker alcohol intake frequency: 3 or more drinks per day Alcohol type: beer Substance Use Type: does not use Exam Initial Vital Signs Initial Vital Signs: Vital Signs Temperature 97.4 F L 09/25/23 17:31 Pulse Rate 115 H 09/25/23 17:31 Respiratory Rate 16 09/25/23 17:31 Blood Pressure 128/72 09/25/23 17:31 Pulse Oximetry 95 09/25/23 17:31 Oxygen Delivery Method Room Air 09/25/23 17:31 Const General: cooperative, comfortable, well developed, No acute distress, No diaphoretic and No ill appearing HENNH Head: normal to inspection, normocephalic, atraumatic and No cyanosis of lips/distal nose Nose: external nose normal and nares normal Face and sinus: normal facial exam Mouth: oral mucosae normal Throat: uvula midline Eyes General: Yes appearance normal, both eyes and all related structures Neck Neck: normal visual inspection and full ROM Chest Chest: normal inspection of the chest Resp Effort & Inspection: normal respiratory effort, able to speak in complete sentences, no cough, no nasal flaring, no respiratory distress, no stridor, not tachypneic, no tracheal deviation and no use of accessory muscles Auscultation: clear to auscultation bilaterally Cardio Rate: regular rate Rhythm: regular rhythm Pulses: radial pulses present GI Inspection: obesity and no visible herniation Other: Exam deferred Back/Spine/Pelvis Back: normal to inspection and No back tenderness Skin General: no rashes or lesions noted and turgor normal Neuro General: patient alert, patient awake, patient oriented x3 and moves all extremities Extrem General: normal to inspection and capillary refill normal Psych Appearance: grossly normal Course Orders Ordered: ED Orders 09/25/23 18:05 Basic Metabolic Panel Stat Complete Blood Count AUTO DIFF Stat PTT Partial Thromboplastin Richard Stat Prothrombin Time INR Stat 09/25/23 18:10 CT abdomen pelvis w con Stat Vital Signs Vital signs: Vital Signs - 8 hr 09/25/23 17:31 09/25/23 17:48 09/25/23 17:48 Temperature 97.4 F L Pulse Rate 115 H 110 H Respiratory Rate 16 Blood Pressure 128/72 133/74 Pulse Oximetry 95 96 Oxygen Delivery Method Room Air 09/25/23 18:00 09/25/23 18:00 09/25/23 18:07 Temperature Pulse Rate 103 H 104 H Respiratory Rate Blood Pressure 129/74 Pulse Oximetry 94 95 Oxygen Delivery Method 09/25/23 18:07 09/25/23 18:15 09/25/23 18:15 Temperature Pulse Rate 102 H Respiratory Rate Blood Pressure 129/76 136/75 Pulse Oximetry Oxygen Delivery Method 09/25/23 18:30 09/25/23 18:30 Temperature Pulse Rate 103 H Respiratory Rate Blood Pressure 127/63 Pulse Oximetry 92 Oxygen Delivery Method MDM - Abdominal Pain Differential Diagnosis Differential diagnosis: Likely abdominal pain, acute appendicitis, calculus of kidney, constipation, diverticulitis, gastroenteritis, pancreatitis, small bowel obstruction and other (Ascites, liver failure) Lab Data 09/25/23 18:05 09/25/23 18:05 Labs: Lab Results 09/25/23 Range/Units 18:05 WBC 9.8 (4.5-11.0) X10^3/uL RBC 4.35 L (4.5-5.9) X10^6/uL Hgb 15.1 (13.5-17.5) g/dL Hct 42.4 (41-53) % MCV 97.5 (80-100) fL MCH 34.7 H (26-34) PG MCHC 35.6 (30-36) % RDW 14.6 (11.6-14.8) % Plt Count 76 L (150-400) X10^3/uL Neut % (Auto) Not Reportable Lymph % (Auto) Not Reportable [place] % (Auto) Not Reportable Eos % (Auto) Not Reportable Baso % (Auto) Not Reportable Lymph # (Auto) Not Reportable [place] # (Auto) Not Reportable Baso # (Auto) Not Reportable Total Counted 100 Seg Neutrophils % 82.0 H (38-70) % Lymphocytes % (Manual) 6.0 L (25-45) % Monocytes % (Manual) 12.0 H (2-11) % Neutrophils # (Manual) 8036 H (2055-9609) /uL RBC Morphology Norm PT 17.2 H (9.4-12.5) SECONDS INR 1.5 H (0.9-1.3) APTT 33 (25.1-36.5) SECONDS Sodium 123 L (137-145) mmol/L Potassium 3.0 L (3.4-5.1) mmol/L Chloride 78 L (98-107) mmol/L Carbon Dioxide 36 H (22-32) mmol/L BUN 16 (9-20) mg/dL Creatinine 0.90 (0.66-1.25) mg/dL Estimated GFR > 60 (>60) mL/min BUN/Creatinine Ratio 17.8 (6-22) Glucose 216 H (70-100) mg/dL Calcium 8.7 (8.4-10.2) mg/dL [facility] Narrative Medical decision making narrative: Patient presents with increased abdominal distention and request for paracentesis reporting prior paracentesis. Patient states that he relate to have fluid drained earlier than the last time he had a paracentesis. Current vital signs are within normal limits/nonactionable. Patient is afebrile. Hyponatremia noted along with hyperglycemia. Patient is chronically hyponatremic. CT abdomen and pelvis shows mild to moderate abdominal ascites and relatively unchanged from prior imaging. Imaging is not suggestive of acute disease, bowel obstruction perforation mass or abscess. Discussed findings with patient. No emergent paracentesis is warranted at this time. Patient encouraged to follow up with primary care provider for therapeutic paracentesis in the future. Return precautions given. Patient discharged home in stable condition. Discharge Plan Departure Patient Disposition: Home Clinical Impression: Abdominal ascites Qualifiers: Ascites type: due to alcoholic cirrhosis Qualified Code(s): K70.31 - Alcoholic cirrhosis of liver with ascites Instructions: DI for Ascites Prescriptions: Continued bupropion HCl 150 mg tablet extended release 24 hr 150 mg PO DAILY furosemide 20 mg tablet 20 mg PO DAILY 90 Days Qty: 90 0RF spironolactone 25 mg tablet 25 mg PO BID 90 Days Qty: 180 0RF gabapentin 300 mg capsule See Rx Instructions .ROUTE .COMPLEX Qty: 10 0RF Rx Instructions: 300 mg q6H day 1, 300 mg q8 hr day 2, 300 mg BID day 3, 300 mg bedtime day 4, then stop. Referrals: Layne Bustamante MD [Primary Care Provider] - As soon as possible Stand Alone Forms: Patient Portal/API
== END 2023-09-25 20:19 | disposition home or self-care (01) ==
PROVIDERS: Emergency Medicine; Emergency Provider Emergency Medicine; PCP Family Medicine
DX: K70.31 Alcoholic cirrhosis of liver with ascites (principal); E87.1 Hypo-osmolality and hyponatremia; R73.9 Hyperglycemia, unspecified
CPT/HCPCS: 36415; 74177; 80048; 85007; 85025; 85610; 85730; 99283; 99284; Q9967